=== PATIENT | male | born 1960 | race African-American/Black ===

== ENCOUNTER 2016-12-17 20:24 | Inpatient (IN) | payer OTHER ==
--- NOTE | 2016-12-17 21:28 | HP ---
CIWA Score - CIWA Score Nausea/Vomitin-Mild Nausea/No Vomiting Muscle Tremors: 4-Moderate,w/Arms Extend Anxiety: 4-Mod. Anxious/Guarded Agitation: 4-Moderately Restless Paroxysmal Sweats: 2 Orientation: 1-Uncertain about Date Tacttile Disturbances: 2-Mild Itch/Numbness/Burn Auditory Disturbances: 0-None Visual Disturbances: 0-None Headache: 1-Very Mild CIWA-Ar Total Score: 19 Admission ROS BHS - HPI Chief Complaint: WITHDRAWAL SYMPTOMS Allergies/Adverse Reactions: Allergies Allergy/AdvReac Type Severity Reaction Status Date / Time No Known Allergies Allergy Verified 12/17/16 21:23 History of Present Illness: 56 Y.O. MAN WITH EXTENSIVE HISTORY OF ALCOHOL DEPENDENCE IS SEEKING DETOX. HE WAS NEVER BEEN TO ANY DETOX AND DOES NOT HAVE A SIGNIFICANT PERIOD OF SOBRIETY. Exam Limitations: Intoxication - Ebola screening Have you traveled outside of the country in the last 21 days: No Have you had contact with anyone from an Ebola affected area: No Do you have a fever: No - Review of Systems Constitutional: Malaise EENT: reports: No Symptoms Reported Respiratory: reports: Wheezing Cardiac: reports: No Symptoms Reported GI: reports: No Symptoms Reported : reports: No Symptoms Reported Musculoskeletal: reports: No Symptoms Reported Integumentary: reports: No Symptoms Reported Neuro: reports: Tingling, Tremors Endocrine: reports: No Symptoms Reported Hematology: reports: No Symptoms Reported Psychiatric: reports: Mood/Affect Appropiate Other Systems: Reviewed and Negative Patient History - Patient Medical History Hx Anemia: No Hx Asthma: Yes (ON MEDS ) Hx Chronic Obstructive Pulmonary Disease (COPD): No Hx Cancer: No Hx Cardiac Disorders: No Hx Congestive Heart Failure: No Hx Hypertension: Yes (ON MEDS) Hx Hypercholesterolemia: No Hx Pacemaker: No HX Cerebrovascular Accident: No Hx Seizures: No Hx Dementia: No Hx Diabetes: No Hx Gastrointestinal Disorders: No Hx Liver Disease: No Hx Genitourinary Disorders: No Hx Sexually Transmitted Disorders: No Hx Renal Disease (ESRD): No Hx Thyroid Disease: No Hx Human Immunodeficiency Virus (HIV): No (NEG ) Hx Hepatitis C: No Hx Depression: No Hx Suicide Attempt: No Hx Bipolar Disorder: No Hx Schizophrenia: No - Patient Surgical History Past Surgical History: Yes Hx Neurologic Surgery: No Hx Cataract Extraction: No Hx Cardiac Surgery: No Hx Lung Surgery: No Hx Breast Surgery: No Hx Breast Biopsy: No Hx Abdominal Surgery: No Hx Appendectomy: No Hx Cholecystectomy: No Hx Genitourinary Surgery: No Hx Orthopedic Surgery: Yes (RIGHT ANKLE FX REPAIR ) Anesthesia Reaction: No - PPD History Previous Implant?: Yes Documented Results: Negative w/o proof PPD to be Administered?: Yes - Reproductive History Patient is a Female of Child Bearing Age (11 -55 yrs old): No - Smoking Cessation Smoking history: Never smoked - Substance & Tx. History Hx Alcohol Use: Yes Hx Substance Use: No Substance Use Type: Alcohol Hx Substance Use Treatment: No - Substances Abused Alcohol Route: Oral Frequency: 3-6 times per week Amount used: 2-3 PINTS OF LIQUOR Age of first use: 21 Date of Last Use: 12/17/16 Family Disease History - Family Disease History Family Disease History: CA: Sister (BR CA- ) Admission Physical Exam [facility] - Vital Signs Vital Signs: Last Vital Signs Temp Pulse Resp BP Pulse Ox 97.9 F 132 H 18 160/96 12/17/16 21:34 12/17/16 21:34 12/17/16 21:34 12/17/16 21:34 - Physical General Appearance: Yes: Alcohol on Breath, Intoxicated, Tremorous, Anxious HEENTM: Yes: Normocephalic, Normal Voice Respiratory: Yes: Chest Non-Tender, Lungs Clear, Normal Breath Sounds, No Accessory Muscle Use Neck: Yes: No masses,lesions,Nodules Breast: Yes: Breast Exam Deferred Cardiology: Yes: Regular Rhythm, Tachycardia Abdominal: Yes: Flat, Soft Genitourinary: Yes: Other (NO COMPLAINTS REPORTED) Back: Yes: Normal Inspection Musculoskeletal: Yes: full range of Motion, Gait Steady Extremities: Yes: Tremors Neurological: Yes: Alert, Normal Mood/Affect, Normal Response Integumentary: Yes: Normal Color, Dry, Warm Lymphatic: Yes: Within Normal Limits - Diagnostic (1) Alcohol dependence with uncomplicated withdrawal Current Visit: Yes Status: Chronic (2) HTN (hypertension) Current Visit: Yes Status: Chronic (3) Asthma Current Visit: Yes Status: Chronic Cleared for Admission [facility] - Detox or Rehab [facility] Level of Care: Medically Managed Detox Regimen/Protocol: Librium S Breath Alcohol Content Breath Alcohol Content: 0.250 Vital Signs - Vital Signs Vital Signs Refused: No Temperature: 97.9 F Temperature Source: Oral Pulse Rate: 132 Respiratory Rate: 18 Blood Pressure: 160/96 BP Location: Left Arm Blood Pressure Position: Sitting - Height Height: 5 ft 6 in - Weight Weight: 187 lb Weight Measurement Method: Standing Scale Body Mass Index (BMI): 30.2 Urine Drug Screen - Test Device Lot Number: [id number] Expiration Date: 08/13/18 - Control Is Test Valid: Yes - Results Drug Screen Negative: Yes
[2016-12-17 21:35] VITALS: BMI 30.2
[2016-12-17] MEDS ORDERED: LOPERAMIDE HCL 2 MG CAPSULE PO PRN (21:35)
[2016-12-17] MEDS ORDERED: MAGNESIUM HYDROX 2400MG/30ML ORAL SUSPENSION 30 ML CUP PO PRN (21:35)
[2016-12-17] MEDS ORDERED: IBUPROFEN 400 MG TABLET (FP) PO PRN (21:35)
[2016-12-17] MEDS ORDERED: MAGNESIUM CITRATE 300 ML BOTTLE PO PRN (21:35)
[2016-12-17] MEDS ORDERED: MENTHOL/PHENOL 1 EACH UD MM PRN (21:35)
[2016-12-17] MEDS ORDERED: MAG HYDROX/AL HYDROX/SIMETH 30 ML UNIT-DOSE CUP PO PRN (21:35)
[2016-12-17] MEDS ORDERED: chlordiazePOXIDE HCL 25 MG CAPSULE PO ONE (21:35)
[2016-12-17] MEDS ORDERED: P-EPHED 60MG/TRIPROLIDI 2.5MG TABLET PO PRN (21:35)
[2016-12-17] MEDS ORDERED: ACETAMINOPHEN 325 MG TABLET (FP) PO PRN (21:35)
[2016-12-17] MEDS ORDERED: chlordiazePOXIDE HCL 25 MG CAPSULE PO PRN (21:35)
[2016-12-17] MEDS ORDERED: hydrOXYzine PAMOATE 50 MG CAPSULE (FP) PO PRN (21:35)
[2016-12-17] MEDS ORDERED: guaiFENesin/D-METHORPHAN HB 10 ML UNIT-DOSE CUPS PO PRN (21:35)
[2016-12-17] MEDS ORDERED: ALBUTEROL SO4 6.7 GM HFA INHALER IH PRN (21:37)
[2016-12-17] MEDS: chlordiazePOXIDE HCL 25 MG CAPSULE PO SCH (23:55)
[2016-12-18] MEDS: THIAMINE HCL 100 MG TABLET (FP) PO SCH ×2 (00:05→22:37)
[2016-12-18] MEDS: chlordiazePOXIDE HCL 25 MG CAPSULE PO SCH ×4 (05:19→22:37)
[2016-12-18 09:53] LABS: MCH 29.3 pg (25.7-33.7); MCHC 33.2 g/dl (32.0-35.9); MEAN CELL VOLUME 88.2 fl (80-96); MEAN PLT VOLUME 8.5 fl (7.5-11.1); PLATELET COUNT 217 K/MM3 (134-434); RDW 15.1 % (11.9-15.9); WHITE BLOOD COUNT 3.7 K/mm3 (4.0-10.0)
[2016-12-18 10:18] LABS: ALBUMIN 3.9 g/dl (3.4-5.0); ALK PHOS 69 U/L (45-117); ANION GAP 16 (8-16); BILIRUBIN,TOTAL 0.3 mg/dL (0.2-1.0); CALCIUM 8.8 mg/dL (8.5-10.1); CO2 27 mmol/L (21-32); CREATININE 0.8 mg/dL (0.7-1.3); GLUCOSE,RANDOM 110 mg/dL (74-106); SGOT/AST 29 U/L (15-37); SGPT/ALT 43 U/L (12-78); TOT PROT 7.4 g/dl (6.4-8.2)
[2016-12-18] MEDS: PRENATAL VITAMINS W/ FOLIC ACID TABLET (FP) PO SCH (10:44)
[2016-12-18] MEDS: NIFEdipine E.R 60 MG TABLET (UD) PO SCH (10:44)
[2016-12-18 10:45] LABS: HIV 1 & 2 AB NEGATIVE; HIV 1 AGp24 NEGATIVE
--- NOTE | 2016-12-18 10:46 | PN ---
S CIWA - CIWA Score Nausea/Vomitin Muscle Tremors: 3 Anxiety: 3 Agitation: 3 Paroxysmal Sweats: 1-Minimal Palms Moist Orientation: 0-Oriented Tacttile Disturbances: 1-Very Mild Itch/Numbness Auditory Disturbances: 1-Very Mild Visual Disturbances: 1-Very Mild Sensitivity Headache: 2-Mild CIWA-Ar Total Score: 18 S Progress Note (SOAP) Subjective: ALERT,IRRITABLE,ANXIOUS,INTERRUPTED SLEEP,TREMOR, Objective: 12/18/16 10:43 Vital Signs Temperature 98.6 F 12/18/16 10:14 Pulse Rate 140 H 12/18/16 10:14 Respiratory Rate 18 12/18/16 10:14 Blood Pressure 126/64 12/18/16 10:14 O2 Sat by Pulse Oximetry (%) EKG SINUS TACHYCARDIA RATE 121 REPEAT EKG SINUS TACHYCARDIA RATE 130 NO CHEST PAIN,NO SOB,NO DIZZINESS Laboratory Last Values WBC 3.7 K/mm3 (4.0-10.0) L 12/18/16 07:00 RBC 4.18 M/mm3 (4.00-5.60) 12/18/16 07:00 Hgb 12.3 GM/dL (11.7-16.9) 12/18/16 07:00 Hct 36.9 % (35.4-49) 12/18/16 07:00 MCV 88.2 fl (80-96) 12/18/16 07:00 MCHC 33.2 g/dl (32.0-35.9) 12/18/16 07:00 RDW 15.1 % (11.9-15.9) 12/18/16 07:00 Plt Count 217 K/MM3 (134-434) 12/18/16 07:00 MPV 8.5 fl (7.5-11.1) 12/18/16 07:00 Sodium 142 mmol/L (136-145) 12/18/16 07:00 Potassium 3.5 mmol/L (3.5-5.1) 12/18/16 07:00 Chloride 99 mmol/L (98-107) 12/18/16 07:00 Carbon Dioxide 27 mmol/L (21-32) 12/18/16 07:00 Anion Gap 16 (8-16) 12/18/16 07:00 BUN 13 mg/dL (7-18) 12/18/16 07:00 Creatinine 0.8 mg/dL (0.7-1.3) 12/18/16 07:00 Creat Clearance w eGFR > 60 (>60) 12/18/16 07:00 Random Glucose 110 mg/dL (74-106) H 12/18/16 07:00 Calcium 8.8 mg/dL (8.5-10.1) 12/18/16 07:00 Total Bilirubin 0.3 mg/dL (0.2-1.0) 12/18/16 07:00 AST 29 U/L (15-37) 12/18/16 07:00 ALT 43 U/L (12-78) 12/18/16 07:00 Alkaline Phosphatase 69 U/L (45-117) 12/18/16 07:00 Total Protein 7.4 g/dl (6.4-8.2) 12/18/16 07:00 Albumin 3.9 g/dl (3.4-5.0) 12/18/16 07:00 LABS PENDING Assessment: 12/18/16 10:46 WITHDRAWAL SYMPTOM Plan: CONTINUE DETOX,CONTINUE PROCARDIA XL 60 MGS PO DAILY,CLOSE MONITORING OF VITAL SIGN
--- NOTE | 2016-12-18 16:28 | EKG ---
Test Reason : Blood Pressure : / mmHG Vent. Rate : 121 BPM Atrial Rate : 121 BPM P-R Int : 000 ms QRS Dur : 088 ms QT Int : 422 ms P-R-T Axes : 000 026 075 degrees QTc Int : 599 ms POOR DATA QUALITY, INTERPRETATION MAY BE ADVERSELY AFFECTED SINUS TACHYCARDIA ABNORMAL ECG NO PREVIOUS ECGS AVAILABLE Confirmed by SHIRIN KELLEY, GEMA ([id number]) on 12/18/2016 4:27:48 PM Referred By: Confirmed By:GEMA CARPIO MD
[2016-12-18] MEDS ORDERED: cloNIDine HCL 0.1 MG TABLET PO ONE (17:45)
[2016-12-18 20:56] LABS: URINE APPEARANCE CLEAR; URINE BILIRUBIN NEGATIVE (NEGATIVE); URINE BLOOD NEGATIVE (NEGATIVE); URINE COLOR YELLOW; URINE GLUCOSE (UA) NEGATIVE (NEGATIVE); URINE KETONE NEGATIVE (NEGATIVE); URINE NITRITE NEGATIVE (NEGATIVE); URINE UROBILINOGEN NEGATIVE E.U./dl (0.2-1.0)
[2016-12-18 21:05] LABS: URINE LEUK ESTERASE TRACE (NEGATIVE); URINE PROTEIN 1+ (NEGATIVE)
[2016-12-18 21:11] LABS: URINE MUCUS RARE; URINE RBC 1 /hpf (0-3); URINE WBC 8 /hpf (3-5)
[2016-12-18] MEDS: diphenhydrAMINE HCL 50 MG CAPSULE PO PRN (22:38)
[2016-12-19] MEDS: chlordiazePOXIDE HCL 25 MG CAPSULE PO SCH ×3 (06:09→16:51)
--- NOTE | 2016-12-19 09:25 | EKG ---
Test Reason : Blood Pressure : / mmHG Vent. Rate : 130 BPM Atrial Rate : 130 BPM P-R Int : 000 ms QRS Dur : 090 ms QT Int : 396 ms P-R-T Axes : 070 038 066 degrees QTc Int : 582 ms SINUS TACHYCARDIA NONSPECIFIC T WAVE ABNORMALITY ABNORMAL ECG WHEN COMPARED WITH ECG OF 17-DEC-2016 23:17, NONSPECIFIC T WAVE ABNORMALITY HAS REPLACED INVERTED T WAVES IN LATERAL LEADS Confirmed by MARCELO KELLEY, HILDA ([id number]) on 12/19/2016 9:24:34 AM Referred By: Confirmed By:HILDA ROBERTSON MD
[2016-12-19] MEDS: NIFEdipine E.R 60 MG TABLET (UD) PO SCH (10:36)
[2016-12-19] MEDS: PRENATAL VITAMINS W/ FOLIC ACID TABLET (FP) PO SCH (10:36)
--- NOTE | 2016-12-19 11:01 | PN ---
[facility] CIWA - CIWA Score Nausea/Vomitin Muscle Tremors: 3 Anxiety: 3 Agitation: 2 Paroxysmal Sweats: 1-Minimal Palms Moist Orientation: 0-Oriented Tacttile Disturbances: 1-Very Mild Itch/Numbness Auditory Disturbances: 1-Very Mild Visual Disturbances: 1-Very Mild Sensitivity Headache: 2-Mild CIWA-Ar Total Score: 17 BHS Progress Note (SOAP) Subjective: ALERT,IRRITABLE,ANXIOUS,INTERRUPTED SLEEP,TREMOR Objective: 12/19/16 10:58 Vital Signs Temperature 98.1 F 12/19/16 09:51 Pulse Rate 135 H 12/19/16 09:51 Respiratory Rate 20 12/19/16 09:51 Blood Pressure 116/78 12/19/16 09:51 O2 Sat by Pulse Oximetry (%) Laboratory Last Values WBC 3.7 K/mm3 (4.0-10.0) L 12/18/16 07:00 RBC 4.18 M/mm3 (4.00-5.60) 12/18/16 07:00 Hgb 12.3 GM/dL (11.7-16.9) 12/18/16 07:00 Hct 36.9 % (35.4-49) 12/18/16 07:00 MCV 88.2 fl (80-96) 12/18/16 07:00 MCHC 33.2 g/dl (32.0-35.9) 12/18/16 07:00 RDW 15.1 % (11.9-15.9) 12/18/16 07:00 Plt Count 217 K/MM3 (134-434) 12/18/16 07:00 MPV 8.5 fl (7.5-11.1) 12/18/16 07:00 Sodium 142 mmol/L (136-145) 12/18/16 07:00 Potassium 3.5 mmol/L (3.5-5.1) 12/18/16 07:00 Chloride 99 mmol/L (98-107) 12/18/16 07:00 Carbon Dioxide 27 mmol/L (21-32) 12/18/16 07:00 Anion Gap 16 (8-16) 12/18/16 07:00 BUN 13 mg/dL (7-18) 12/18/16 07:00 Creatinine 0.8 mg/dL (0.7-1.3) 12/18/16 07:00 Creat Clearance w eGFR > 60 (>60) 12/18/16 07:00 Random Glucose 110 mg/dL (74-106) H 12/18/16 07:00 Calcium 8.8 mg/dL (8.5-10.1) 12/18/16 07:00 Total Bilirubin 0.3 mg/dL (0.2-1.0) 12/18/16 07:00 AST 29 U/L (15-37) 12/18/16 07:00 ALT 43 U/L (12-78) 12/18/16 07:00 Alkaline Phosphatase 69 U/L (45-117) 12/18/16 07:00 Total Protein 7.4 g/dl (6.4-8.2) 12/18/16 07:00 Albumin 3.9 g/dl (3.4-5.0) 12/18/16 07:00 Urine Color Yellow 12/18/16 13:00 Urine Appearance Clear 12/18/16 13:00 Urine pH 7.0 (5.0-8.0) 12/18/16 13:00 Ur Specific [place] 1.024 (1.001-1.035) 12/18/16 13:00 Urine Protein 1+ (NEGATIVE) H 12/18/16 13:00 Urine Glucose (UA) Negative (NEGATIVE) 12/18/16 13:00 Urine Ketones Negative (NEGATIVE) 12/18/16 13:00 Urine Blood Negative (NEGATIVE) 12/18/16 13:00 Urine Nitrite Negative (NEGATIVE) 12/18/16 13:00 Urine Bilirubin Negative (NEGATIVE) 12/18/16 13:00 Urine Urobilinogen Negative E.U./dl (0.2-1.0) 12/18/16 13:00 Ur Leukocyte Esterase Trace (NEGATIVE) H 12/18/16 13:00 Urine RBC 1 /hpf (0-3) 12/18/16 13:00 Urine WBC 8 /hpf (3-5) 12/18/16 13:00 Ur Epithelial Cells Rare /hpf (FEW) 12/18/16 13:00 Urine Mucus Rare 12/18/16 13:00 RPR Titer Nonreactive (NONREACTIVE) 12/18/16 07:00 HIV 1&2 Antibody Screen Negative 12/18/16 07:00 HIV P24 Antigen Negative 12/18/16 07:00 Assessment: 12/19/16 11:00 WITHDRAWAL SYMPTOM Plan: CONTINUE DETOX
[2016-12-19] MEDS: THIAMINE HCL 100 MG TABLET (FP) PO SCH (22:42)
[2016-12-19] MEDS: chlordiazePOXIDE 5 MG CAPSULE PO SCH (22:42)
[2016-12-19] MEDS: diphenhydrAMINE HCL 50 MG CAPSULE PO PRN (22:43)
[2016-12-20] MEDS: chlordiazePOXIDE 5 MG CAPSULE PO SCH ×3 (06:04→17:54)
[2016-12-20] MEDS: PRENATAL VITAMINS W/ FOLIC ACID TABLET (FP) PO SCH (11:25)
[2016-12-20] MEDS: NIFEdipine E.R 60 MG TABLET (UD) PO SCH (11:25)
--- NOTE | 2016-12-20 14:56 | PN ---
S Progress Note (SOAP) Subjective: Fatigue, Tremors, Interrupted sleep, Sweating. Objective: PT. A & O X 3. 12/20/16 14:55 Vital Signs Temperature 97.1 F L 12/20/16 14:16 Pulse Rate 113 H 12/20/16 14:16 Respiratory Rate 18 12/20/16 14:16 Blood Pressure 127/94 12/20/16 14:16 O2 Sat by Pulse Oximetry (%) Laboratory Last Values WBC 3.7 K/mm3 (4.0-10.0) L 12/18/16 07:00 RBC 4.18 M/mm3 (4.00-5.60) 12/18/16 07:00 Hgb 12.3 GM/dL (11.7-16.9) 12/18/16 07:00 Hct 36.9 % (35.4-49) 12/18/16 07:00 MCV 88.2 fl (80-96) 12/18/16 07:00 MCHC 33.2 g/dl (32.0-35.9) 12/18/16 07:00 RDW 15.1 % (11.9-15.9) 12/18/16 07:00 Plt Count 217 K/MM3 (134-434) 12/18/16 07:00 MPV 8.5 fl (7.5-11.1) 12/18/16 07:00 Sodium 142 mmol/L (136-145) 12/18/16 07:00 Potassium 3.5 mmol/L (3.5-5.1) 12/18/16 07:00 Chloride 99 mmol/L (98-107) 12/18/16 07:00 Carbon Dioxide 27 mmol/L (21-32) 12/18/16 07:00 Anion Gap 16 (8-16) 12/18/16 07:00 BUN 13 mg/dL (7-18) 12/18/16 07:00 Creatinine 0.8 mg/dL (0.7-1.3) 12/18/16 07:00 Creat Clearance w eGFR > 60 (>60) 12/18/16 07:00 Random Glucose 110 mg/dL (74-106) H 12/18/16 07:00 Calcium 8.8 mg/dL (8.5-10.1) 12/18/16 07:00 Total Bilirubin 0.3 mg/dL (0.2-1.0) 12/18/16 07:00 AST 29 U/L (15-37) 12/18/16 07:00 ALT 43 U/L (12-78) 12/18/16 07:00 Alkaline Phosphatase 69 U/L (45-117) 12/18/16 07:00 Total Protein 7.4 g/dl (6.4-8.2) 12/18/16 07:00 Albumin 3.9 g/dl (3.4-5.0) 12/18/16 07:00 Urine Color Yellow 12/18/16 13:00 Urine Appearance Clear 12/18/16 13:00 Urine pH 7.0 (5.0-8.0) 12/18/16 13:00 Ur Specific [place] 1.024 (1.001-1.035) 12/18/16 13:00 Urine Protein 1+ (NEGATIVE) H 12/18/16 13:00 Urine Glucose (UA) Negative (NEGATIVE) 12/18/16 13:00 Urine Ketones Negative (NEGATIVE) 12/18/16 13:00 Urine Blood Negative (NEGATIVE) 12/18/16 13:00 Urine Nitrite Negative (NEGATIVE) 12/18/16 13:00 Urine Bilirubin Negative (NEGATIVE) 12/18/16 13:00 Urine Urobilinogen Negative E.U./dl (0.2-1.0) 12/18/16 13:00 Ur Leukocyte Esterase Trace (NEGATIVE) H 12/18/16 13:00 Urine RBC 1 /hpf (0-3) 12/18/16 13:00 Urine WBC 8 /hpf (3-5) 12/18/16 13:00 Ur Epithelial Cells Rare /hpf (FEW) 12/18/16 13:00 Urine Mucus Rare 12/18/16 13:00 RPR Titer Nonreactive (NONREACTIVE) 12/18/16 07:00 HIV 1&2 Antibody Screen Negative 12/18/16 07:00 HIV P24 Antigen Negative 12/18/16 07:00 LABS NOTED. Assessment: 12/20/16 14:56 WITHDRAWAL SYMPTOMS. Plan: CONTINUE DETOX. ADVISED PATIENT TO FOLLOW-UP WITH [facility] / REHAB MEDICAL PROVIDER AFTER DISCHARGE FROM DETOX FOR GENERAL MEDICAL ASSESSMENT AND FOR ABNORMAL ADMISSION LAB VALUES.
[2016-12-20] MEDS: THIAMINE HCL 100 MG TABLET (FP) PO SCH (23:16)
[2016-12-20] MEDS: chlordiazePOXIDE HCL 10 MG CAPSULE PO SCH (23:16)
[2016-12-20] MEDS: diphenhydrAMINE HCL 50 MG CAPSULE PO PRN (23:17)
[2016-12-21] MEDS: chlordiazePOXIDE HCL 10 MG CAPSULE PO SCH (06:13)
[2016-12-21 10:49] VITALS: BP 138/93; PULSE 106; TEMP 97.7
--- NOTE | 2016-12-21 12:20 | DS ---
[facility] Detox Discharge Summary Admission Date: 12/17/16 Discharge Date: 12/21/16 - History Present History: Alcohol Dependence Pertinent Past History: Asthma HTN - Physical Exam Results Vital Signs: Vital Signs Temperature 97.7 F 12/21/16 10:00 Pulse Rate 106 H 12/21/16 10:00 Respiratory Rate 20 12/21/16 10:00 Blood Pressure 138/93 12/21/16 10:00 O2 Sat by Pulse Oximetry (%) Pertinent Admission Physical Exam Findings: Withdrawal symptoms Laboratory Tests 12/18/16 12/18/16 12/18/16 07:00 07:00 07:00 WBC 3.7 L RBC 4.18 Hgb 12.3 Hct 36.9 MCV 88.2 MCHC 33.2 RDW 15.1 Plt Count 217 MPV 8.5 Sodium 142 Potassium 3.5 Chloride 99 Carbon Dioxide 27 Anion Gap 16 BUN 13 Creatinine 0.8 Creat Clearance w eGFR > 60 Random Glucose 110 H Calcium 8.8 Total Bilirubin 0.3 AST 29 ALT 43 Alkaline Phosphatase 69 Total Protein 7.4 Albumin 3.9 Urine Color Urine Appearance Urine pH Ur Specific [place] Urine Protein Urine Glucose (UA) Urine Ketones Urine Blood Urine Nitrite Urine Bilirubin Urine Urobilinogen Ur Leukocyte Esterase Urine RBC Urine WBC Ur Epithelial Cells Urine Mucus RPR Titer Nonreactive HIV 1&2 Antibody Screen HIV P24 Antigen 12/18/16 12/18/16 07:00 13:00 WBC RBC Hgb Hct MCV MCHC RDW Plt Count MPV Sodium Potassium Chloride Carbon Dioxide Anion Gap BUN Creatinine Creat Clearance w eGFR Random Glucose Calcium Total Bilirubin AST ALT Alkaline Phosphatase Total Protein Albumin Urine Color Yellow Urine Appearance Clear Urine pH 7.0 Ur Specific [place] 1.024 Urine Protein 1+ H Urine Glucose (UA) Negative Urine Ketones Negative Urine Blood Negative Urine Nitrite Negative Urine Bilirubin Negative Urine Urobilinogen Negative Ur Leukocyte Esterase Trace H Urine RBC 1 Urine WBC 8 Ur Epithelial Cells Rare Urine Mucus Rare RPR Titer HIV 1&2 Antibody Screen Negative HIV P24 Antigen Negative Labs noted - Treatment Hospital Course: Detox Protocol Followed, Detoxed Safely, Responded well, Discharged Condition Good - Medication Discharge Medications: Ambulatory Orders Nifedipine ER [Procardia Xl -] 60 mg PO DAILY 12/17/16 - Diagnosis (1) Alcohol dependence with uncomplicated withdrawal Current Visit: Yes Status: Acute (2) Asthma Current Visit: Yes Status: Chronic (3) HTN (hypertension) Current Visit: Yes Status: Chronic - AMA Did Patient Leave Against Medical Advice: No
== END 2016-12-21 09:45 | disposition home or self-care (01) | DRG 897 ==
LOC: YASAS 20:24 → Y6N 22:48
PROVIDERS: ADMIT Internal Medicine Addiction Medicine; ATTEND Internal Medicine Addiction Medicine
PROC: HZ2ZZZZ Detoxification Services for Substance Abuse Treatment (ICD-10-PCS; principal; 2016-12-21)
DX: F10.230 Alcohol dependence with withdrawal, uncomplicated (principal); I10 Essential (primary) hypertension; J45.909 Unspecified asthma, uncomplicated
CPT/HCPCS: 36415; 71020-TC; 80053; 81003; 81015; 85027; 86593; 87389; 93005; 93010